=== PATIENT | female | born 1940 ===

== ENCOUNTER 2018-06-24 08:41 | Day surgery (SDC) | payer MEDICARE ==
[2018-06-24 12:15] VITALS: BMI 27.9
[2018-06-24] MEDS ORDERED: Lactated Ringer's 500 ML IV ONE (12:26)
[2018-06-24] MEDS ORDERED: Propofol 10 mg/ml Inj (20 ML) ONE (12:47)
[2018-06-24] MEDS ORDERED: Etomidate 20 mg/10ml Inj IV ONE (12:47)
[2018-06-24 13:26] VITALS: TEMP 98
[2018-06-24 13:45] VITALS: BP 128/51; PULSE 65; RESP 14; O2SAT 95
== END 2018-06-24 13:48 | disposition home or self-care (01) ==
LOC: H.ENDO 08:41
PROVIDERS: ATTEND Internal Medicine Gastroenterology
DX: K57.30 Diverticulosis of large intestine without perforation or abscess without bleeding (principal); R10.84 Generalized abdominal pain; I10 Essential (primary) hypertension; E78.5 Hyperlipidemia, unspecified; E11.9 Type 2 diabetes mellitus without complications; K29.50 Unspecified chronic gastritis without bleeding; K64.8 Other hemorrhoids; D50.9 Iron deficiency anemia, unspecified
CPT/HCPCS: 43239; 45378; 82948; 88305; J2001; J2704; J7120